=== PATIENT | female | born 1940 | race Caucasian/White ===

== ENCOUNTER → 2018-06-15 09:07 | Outpatient (CLI) | payer MEDICARE, BC ==
[2013-03-01 13:03] VITALS: BMI 25.8
[~2018-06-15 09:07] MED LIST: BAYER CHEWABLE81 MG PO; FEMARA2.5 MG; FOSAMAX 70 MG T70 MG PO; LISINOPRIL10 MG PO; PLAVIX75 MG PO; PRAVACHOL40 MG PO; SYNTHROID25 MCG PO; TOPROL XL25 MG PO; VERAPAMIL HCL40 MG PO
--- NOTE | 2018-06-22 10:39 | EC ---
PATIENT:VIRGIL CALVERT DATE OF SERVICE: 06/15/18 SEX: F MEDICAL RECORD: [id number] DATE OF : 44 [facility] AGE OF PATIENT: 78 ADMISSION DATE: 06/15/18 REFERRING PHYSICIAN: INTERPRETING PHYSICIAN: CHRISTINE ANNE MD ECHOCARDIOGRAM REPORT ECHO CHARGES 4 ECHO COMPLETE Date: 06/15/18 CLINICAL DIAGNOSIS: HTN/CAD ECHOCARDIOGRAPHIC MEASUREMENTS (adult normal given) AC root (d.<3.7cm) 3.3 cm LV Septum d (<1.2 cm> 1.6 cm Valve Excursion 1.9 cm LV Septum (systole) 1.9 cm Left Atria (s.<4.0cm> 4.8 cm LVPW d(<1.2cm) 1.5 cm RV (d.<2.3cm) 4.3 cm LVPW (sytole) 2.0 cm LV diastole(<5.6CM) 4.6 cm MV E-F(>70mm/sec) cm LV systole 2.8 cm LVOT Diameter 1.8 cm MV exc.(>10mm) 1.4 cm Est.ejection fraction (50-75%) % DOPPLER: LVIT cm/sec A 84.0 cm/sec E 98.0 cm/sec LA cm/sec RVSP 53 mmHg LVOT 102 cm/sec AOP1/2T 520 m/s Asc. Ao 148 cm/sec RVOT 74 cm/sec RA cm/sec PA 102 cm/sec AV Gradient Peak 8.79 mmHg AV Mean 4.40 mmHg AV Area 2.0 cm MV Gradient Peak 6.02 mmHg MV Mean 2.07 mmHg MV Area cm COMMENTS: Sand Digger: Alberto SALVADOR Aquatic Habitat Biologist: 1 Dr. Anne TAPE# PACS Pericardial Effusion N DATE OF SERVICE: Echocardiogram FINDINGS: 1. Left ventricular chamber size is within normal limits. Left ventricular systolic function is normal. Overall ejection fraction estimated at 60%. 2. Left atrium, right atrium, and right ventricular chamber sizes are within normal limits. 3. Valvular structures have normal structure and motion. ECHOCARDIOGRAM REPORT [id number] VIRGIL CALVERT 4. Doppler interrogation reveals [id number] aortic insufficiency, mild mitral regurgitation, moderate tricuspid regurgitation, no other valvular insufficiency or stenosis. Pulmonary systolic pressure is estimated 53 mmHg. 5. No evidence of pericardial effusion or left ventricular thrombus. TRANSINT:[id number] Voice Confirmation ID: [id number] DOCUMENT ID: [id number] CHRISTINE ANNE MD at 1039 CC: [id number] DICTATION DATE: 06/16/18 1207 IGNITION MECHANIC: 06/16/18 1717 DEP CLI 06/15/18 [place] [id number] [place] [id number]
== END | disposition home or self-care (01) ==
LOC: D.HCCARDIO 09:07
PROVIDERS: ATTEND Internal Medicine Interventional Cardiology
DX: I10 Essential (primary) hypertension (principal)